=== PATIENT | female | born 1960 | race Caucasian/White ===

== ENCOUNTER 2017-07-13 15:36 | Inpatient (IN) | payer MEDICAID, OTHER ==
[~2017-07-13 15:36] MED LIST: EPINEPHrine 0.1 MG/ML SYG; MAGNESIUM SULFATE 1 GM/100 ML D5W IVPB; NA BICARBONATE 8.4% 50 ML SYG
[2017-07-13] MEDS: ROCURONIUM 50 MG INJ IV (16:04)
[2017-07-13] MEDS: PROPOFOL 100 ML IV (16:06)
[2017-07-13] MEDS ORDERED: EPINEPHrine 0.1 MG/ML SYG (16:29)
[2017-07-13] MEDS ORDERED: NORepinephrine 8MG/250 ML (PMX 250 ML (16:41)
[2017-07-13] MEDS: NA BICARBONATE 8.4% 50 ML SYG IV ×2 (17:04→19:39)
[2017-07-13] MEDS: NORepinephrine 8MG/250 ML (PMX 250 ML IV (17:06)
[2017-07-13] MEDS ORDERED: PHENYLephrine 20MG IN 250 ML 250 ML (17:41)
[2017-07-13 17:46] LABS: AMMONIA 69 umol/l (9-30)
[2017-07-13 17:46] LABS: ALBUMIN 1.5 g/dl (3.3-4.9); ALBUMIN/GLOBULIN RATIO 0.71; ALKALINE PHOSPHATASE 616 IU/L (42-121); ANION GAP 30 (8-16); BILIRUBIN,INDIRECT 1.2 mg/dl (0-1.1); BILIRUBIN,TOTAL 8.1 mg/dl (0.2-1.3); BLOOD UREA NITROGEN 35 mg/dl (7-20); CALCIUM 7.4 mg/dl (8.4-10.2); CARBON DIOXIDE 11 mmol/L (21-31); CHLORIDE 86 mmol/L (97-110); GLUCOSE 149 mg/dl (70-220); SODIUM 122 mmol/L (135-144); TOTAL PROTEIN 3.6 g/dl (6.1-8.1)
[2017-07-13] MEDS: PHENYLephrine 20MG IN 250 ML 250 ML IV (17:46)
[2017-07-13 17:55] LABS: ABNORMAL IP MESSAGE 1; HEMATOCRIT 12.5 % (37.0-47.0); MEAN CORPUSCULAR HGB CONC 29.6 g/dl (32.0-37.0); MEAN CORPUSCULAR VOLUME 91.2 fl (82.0-101.0); MEAN PLATELET VOLUME 8.9 fl (7.4-10.4); NUCLEATED RED BLOOD CELLS% 3.4 /100WBC (0.0-0.0); PLATELET COUNT 402 10^3/UL (140-415); RED BLOOD COUNT 1.37 10^6/ul (4.20-5.40); RED CELL DISTRIBUTION WIDTH 16.7 % (11.5-14.5)
[2017-07-13 17:55] LABS: WHITE BLOOD COUNT 20.2 10^3/ul (4.8-10.8)
[2017-07-13 17:57] LABS: ADD MAN DIFF? YES; HEMOGLOBIN 3.7 g/dl (12.0-16.0); PATH REVIEW? YES; POSITIVE DIFF @See below; TROPONIN-I 0.029 ng/ml (0.00-0.12)
[2017-07-13 18:09] LABS: PROTIME > 100.0 Sec (11.9-14.9); PT RATIO 7.8
[2017-07-13 18:10] LABS: INR > 6.00; PARTIAL THROMBOPLASTIN TIME > 180.0 Sec (25.0-35.0)
[2017-07-13 18:11] LABS: ALANINE AMINOTRANSFERASE 1081 IU/L (13-69)
[2017-07-13 18:25] LABS: ASPARTATE AMINO TRANSFERASE > 7500 IU/L (15-46)
[2017-07-13 18:27] LABS: LACTIC ACID 22.2 mmol/L (0.5-2.0)
[2017-07-13 18:50] LABS: IMMEDIATE SPIN CROSSMATCH 1 5
[2017-07-13 19:08] LABS: AADO2 Arterial 598.9 mmHg (7.0-24.0); Allen Test ACCEPTAB; Arterial Base Excess -25.3 mmol/L (-3.0-3); Arterial Blood Gas Oxygen Sat 80.3 mmHG (95.0-98.0); Arterial COHb 0.9 % (0.0-3.0); Arterial Fraction of Oxyhgb 79.1 % (93.0-99.0); Arterial HCO3 6.3 mmol/L (22.0-26.0); Arterial MetHb 0.6 % (0.0-1.5); Arterial Total Hemglobin 5.2 g/dl (12.0-18.0); Arterial pCO2 39.8 mmhg (35-45); Blood Gas Mean Airway Pressure 12; MODE VENT - AC; Site Left Radial
[2017-07-13 19:09] LABS: BAND NEUTROPHILS % (M) 10 % (0-4); ERYTHROBLAST% (NRBC) (M) 4 % (0-0); LYMPHOCYTES # 3.4 10^3/ul (0.8-2.9); LYMPHOCYTES #M 3.4 10^3/ul (0.8-2.9); LYMPHOCYTES % (M) 17 % (15-51); METAMYELOCYTES #M 0.6 10^3/ul (0.0-0.0); METAMYELOCYTES %M 3 % (0-0); MONOCYTE # 0.6 10^3/ul (0.3-0.9); MONOCYTE #M 0.6 10^3/ul (0.3-0.9); MONOCYTES % (M) 3 % (0-11); MYELOCYTES % (M) 5 % (0-0); SEG NEUT #M 12.9 10^3/ul (1.7-7.5); SEGMENTED NEUTROPHILS (M) % 62 % (39-77)
[2017-07-13 19:10] LABS: POLYCHROMASIA 1+ (0-0)
[2017-07-13 19:11] LABS: BURR CELLS 2+; HYPOCHROMASIA 1+ (0-0)
[2017-07-13] MEDS: SOD CHLORIDE 0.9% 2,950 ML IV (19:38)
[2017-07-13] MEDS: SOD CHLORIDE 0.9% 1,000 ML IV (19:39)
[2017-07-13] MEDS: PIPER-TAZO 3.375 GM IV (PMX) 100 ML IVPB (19:51)
[2017-07-13] MEDS: MIDAZOLAM 1 MG/ML 2 ML INJ IV (19:53)
[2017-07-13] MEDS ORDERED: MIDAZOLAM (DRIP) 50 mg/50 mL 50 ML IV (20:00)
[2017-07-13] MEDS: DOPamine-D5W 1.6 MG/ML 250 ML IV (20:11)
[2017-07-13] MEDS: VASOPRESSIN 60 UNIT in DEXTROSE 5% 57 ML IV (20:17)
[2017-07-13 20:34] LABS: LACTIC ACID 23.8 mmol/L (0.5-2.0)
[2017-07-13] MEDS: VANCOMYCIN 1 GM (PMX) 250 ML IVPB (21:43)
[2017-07-13 22:22] LABS: LACTIC ACID 19.3 mmol/L (0.5-2.0)
[2017-07-13] MEDS ORDERED: DEXTROSE 5%-0.45% NACL 1,000 ML IV (22:50)
[2017-07-13] MEDS ORDERED: DEXTROSE 50% 50 ML SYRINGE (22:52)
[2017-07-13] MEDS ORDERED: DOBUTamine/D5W 1 MG/ML DRIP 250 ML IV (23:00)
[2017-07-13] MEDS ORDERED: IPRATROPIUM (HFA) 12.9 GM INHALER INH (23:00)
[2017-07-13] MEDS ORDERED: morphine 2 MG INJ IV (23:00)
[2017-07-13] MEDS ORDERED: PROPOFOL 100 ML IV (23:00)
[2017-07-13] MEDS ORDERED: DOPamine-D5W 1.6 MG/ML 250 ML IV (23:00)
[2017-07-13] MEDS ORDERED: PHENYLephrine 20MG IN 250 ML 250 ML IV (23:00)
[2017-07-13] MEDS ORDERED: NORepinephrine 8MG/250 ML (PMX 250 ML IV (23:00)
[2017-07-13] MEDS ORDERED: LORAZEPAM 2 MG INJ IV (23:00)
[2017-07-13] MEDS ORDERED: VASOPRESSIN 100 UNIT in SOD CHLORIDE 0.9% 95 ML IV (23:00)
[2017-07-13] MEDS ORDERED: ONDANSETRON 4 MG INJ IV (23:00)
[2017-07-13] MEDS ORDERED: ALBUTEROL HFA 8 GM INHALER INH (23:00)
[2017-07-14] MEDS ORDERED: PANTOPRAZOLE 40 MG INJ IV (06:00)
[2017-07-14 10:27] LABS: AADO2 Arterial 271.6 mmHg (7.0-24.0); Allen Test ACCEPTAB; Arterial Base Excess -26.8 mmol/L (-3.0-3); Arterial Blood Gas Oxygen Sat 99.8 mmHG (95.0-98.0); Arterial COHb 2.1 % (0.0-3.0); Arterial HCO3 3.9 mmol/L (22.0-26.0); Arterial MetHb 0.7 % (0.0-1.5); Arterial Total Hemglobin 4.7 g/dl (12.0-18.0); Arterial pCO2 22.8 mmhg (35-45); MODE VENT - AC; Site Right Radial
== END 2017-07-14 05:42 | disposition expired | DRG 871 ==
LOC: ICU 21:13 → E/R 07-14 03:35
PROC: 30233N1 Transfusion of Nonautologous Red Blood Cells into Peripheral Vein, Percutaneous Approach (ICD-10-PCS; 2017-07-13)
PROC: 06HM33Z Insertion of Infusion Device into Right Femoral Vein, Percutaneous Approach (ICD-10-PCS; principal; 2017-07-14)
PROC: 5A12012 Performance of Cardiac Output, Single, Manual (ICD-10-PCS; 2017-07-14)
PROC: B54BZZA Ultrasonography of Right Lower Extremity Veins, Guidance (ICD-10-PCS; 2017-07-14)
DX: A41.9 Sepsis, unspecified organism (principal); R65.21 Severe sepsis with septic shock; I46.9 Cardiac arrest, cause unspecified; N17.9 Acute kidney failure, unspecified; E87.1 Hypo-osmolality and hyponatremia; E87.2 Acidosis; K92.2 Gastrointestinal hemorrhage, unspecified; D68.9 Coagulation defect, unspecified; K72.90 Hepatic failure, unspecified without coma; D64.9 Anemia, unspecified; E83.42 Hypomagnesemia; E16.2 Hypoglycemia, unspecified
CPT/HCPCS: 31500; 36415; 36430; 36600; 71045; 80053; 80306; 82140; 82803; 82962; 83605; 83735; 84484; 85025; 85610; 85730; 86850; 86900; 86901; 86920; 87040; 92950; 93005; 94002; 96374; 96375; 96376; 99291-25